=== PATIENT | female | born 1945 | race Caucasian/White ===

== ENCOUNTER 2018-01-27 14:52 | Inpatient (IN) | payer MEDICARE, BC ==
[~2018-01-27] VITALS: Ht 167.6 cm; Wt 90.7 kg
--- NOTE | 2018-01-27 15:20 | NUR ---
Initial contact with pt - no acute distress - nauseated s/p vomited greenish fluid denies chest pain, sob , abdominal pain, skin warm and dry - placed on humidifier attendant - family members at bedside
[2018-01-27] MEDS ORDERED: IV NS 0.9% 1,000 ML BAG IV ONE (15:30)
[2018-01-27] MEDS ORDERED: ONDANSETRON HCL/PF 4 MG/2 ML VIAL ONE ×2 (15:35→17:26)
--- NOTE | 2018-01-27 15:35 | NUR ---
blood culture drawn by histotechnician - pt c/o nausea Dr Hernandez made aware - med given as ordered.
[2018-01-27 15:43] LABS: BASOPHILS % (AUTO) 0.4 % (0.0-2.0); EOSINOPHILS % (AUTO) 0.1 % (0.0-6.0); HEMATOCRIT 41 % (33-45); HEMOGLOBIN 13.6 g/dL (11.5-14.8); LYMPHOCYTES # (AUTO) 1.2 /CMM (0.8-4.8); LYMPHOCYTES % (AUTO) 10.1 % (20.0-44.0); MEAN CORPUSCULAR HGB CONC 33 g/dl (31.0-36.0); MEAN CORPUSCULAR VOLUME 87 fL (82-100); MONOCYTES # (AUTO) 0.6 /CMM (0.1-1.30); NEUTROPHILS # (AUTO) 9.6 /CMM (1.8-8.9); NEUTROPHILS % (AUTO) 84.4 % (43.0-81.0); PLATELET COUNT (AUTO) 206 /CMM (150-450); RED BLOOD CELL COUNT(AUTO) 4.76 MIL/uL (4.0-5.2); WHITE BLOOD COUNT (AUTO) 11.4 K/uL (4.3-11.0)
[2018-01-27] MEDS ORDERED: ONDANSETRON HCL/PF - ER 4 MG/2 ML VIAL IV ONE ×2 (16:00→18:00)
[2018-01-27 16:20] LABS: CALCIUM, SERUM 9.4 mg/dL (8.5-10.1); CARBON DIOXIDE 29 mmol/L (21-32); CHLORIDE 104 mmol/L (98-107); GLUCOSE 214 mg/dL (74-106); POTASSIUM 3.7 mmol/L (3.5-5.1); SODIUM SERUM 142 mmol/L (136-145); UREA NITROGEN, BLOOD 39 mg/dL (7-18)
[2018-01-27 16:25] LABS: ALANINE AMINOTRANSFERASE 21 U/L (12-78); ALBUMIN 2.8 g/dL (3.4-5.0); ALKALINE PHOSPHATASE 117 U/L (46-116); ASPARTATE AMINOTRANSFERASE 18 U/L (15-37); BILIRUBIN,DIRECT 0.1 mg/dL (0.0-0.2); BILIRUBIN,TOTAL 0.4 mg/dL (0.2-1.0); TOTAL PROTEIN, SERUM 7.8 g/dL (6.4-8.2)
--- NOTE | 2018-01-27 17:24 | NUR ---
returned from [place] vomiting bile fluid Dr Hernandez made aware
[2018-01-27] MEDS ORDERED: MORPHINE SULFATE INJ 4 MG/ML DISP.SYRIN ONE (17:26)
[2018-01-27] MEDS ORDERED: AMLO2.5T3 PO (17:27)
[2018-01-27] MEDS ORDERED: DONE10TA44 PO (17:27)
[2018-01-27] MEDS ORDERED: MORPHINE SULFATE INJ 2 MG/ML DISP.SYRIN IV ONE (17:30)
--- NOTE | 2018-01-27 17:33 | NUR ---
med given for pain and vomiting as ordered
[2018-01-27] MEDS ORDERED: INSU100V10 SQ (17:56)
[2018-01-27] MEDS ORDERED: PRAM0.253 PO ×2 (17:56)
[2018-01-27] MEDS ORDERED: LATA2.5D7 EACHEYE (17:56)
[2018-01-27] MEDS ORDERED: LOSA50TA39 PO (17:56)
[2018-01-27] MEDS ORDERED: PANT40TA2 PO (17:56)
[2018-01-27] MEDS ORDERED: SITA50TA PO (17:56)
[2018-01-27] MEDS ORDERED: GABA-534 PO (17:56)
[2018-01-27] MEDS ORDERED: ESCI10TA PO (17:56)
[2018-01-27] MEDS ORDERED: FERR325T23 PO (17:56)
[2018-01-27] MEDS ORDERED: HYDR25TA4 PO (17:56)
[2018-01-27] MEDS ORDERED: ATOR10TA PO (17:56)
[2018-01-27] MEDS ORDERED: SOLI10TA2 PO (17:56)
[2018-01-27] MEDS ORDERED: FAMO-131 PO (17:56)
[2018-01-27] MEDS ORDERED: ASPI-1169 PO (17:56)
[2018-01-27] MEDS ORDERED: ERGO500014 PO (17:56)
[2018-01-27] MEDS ORDERED: BRIM5DRO3 EACHEYE (17:56)
--- NOTE | 2018-01-27 17:56 | NUR ---
pt sleeping at present - family members at bedside
[2018-01-27] MEDS ORDERED: IV NS 0.9% 1,000 ML IV ONE (18:30)
--- NOTE | 2018-01-27 18:39 | NUR ---
RIANA Dale seeing pt at present
[2018-01-27] MEDS ORDERED: MORPHINE SULFATE INJ 4 MG/ML DISP.SYRIN IV PRN (19:00)
[2018-01-27] MEDS ORDERED: MORPHINE SULFATE INJ 2 MG/ML DISP.SYRIN IV PRN (19:00)
[2018-01-27] MEDS ORDERED: MAG HYDROX/AL HYDROX/SIMETH 30 ML UDC PO PRN (19:00)
[2018-01-27] MEDS ORDERED: ONDANSETRON HCL/PF 4 MG/2 ML VIAL IVP PRN (19:00)
[2018-01-27] MEDS ORDERED: MAGNESIUM HYDROXIDE 30 ML UDC PO PRN (19:00)
[2018-01-27] MEDS ORDERED: ACETAMINOPHEN 325 MG TABLET PO PRN (19:00)
[2018-01-27] MEDS ORDERED: TEMAZEPAM 15 MG CAPSULE PO PRN (19:00)
--- NOTE | 2018-01-27 19:12 | NUR ---
report to Petros RN
--- NOTE | 2018-01-27 19:18 | NUR ---
RECEIVED REPORT FROM JUANITO ACE FOR JANA
--- NOTE | 2018-01-27 19:20 | NUR ---
CALLED DR BANDA [employer] PRODUCT SPECIALIST FOR CONSULT ON PT
[2018-01-27] MEDS ORDERED: AMIODARONE 150 MG/3 ML VIAL IV ONE ×2 (19:21→19:30)
--- NOTE | 2018-01-27 20:00 | NUR ---
karma rn notes admitted a 72 y/o female a/ox 4 admitted with dx of abdominal pain /n/v and acute renal failure, on tele monitor sr with bbb , v/s stable afebrile admission routine care done admission verification of order done with dr andrade head to toe assessment done , all needs attended too call light within reach kept pts clean dry and comfortable .
--- NOTE | 2018-01-27 20:10 | NUR ---
REPORT GIVEN TO JOSE JUAN HOWARD FOR JANA
[2018-01-27 20:49] VITALS: BP 189/84
[2018-01-27] MEDS: LATANOPROST EYE DROP 0.005% 2.5 ML BOTTLE EACHEYE SCH (22:00)
[2018-01-27] MEDS: ATORVASTATIN 10 MG TABLET PO SCH (22:08)
[2018-01-27] MEDS: PRAMIPEXOLE DI-HCL 0.25 MG TABLET PO SCH (22:09)
--- NOTE | 2018-01-27 23:07 | NUR ---
karma rn notes blood pressure 196/[address] Solomon WITH ORDER MADE AND CARRIED OUT, HYDRALAZINE 25MG Q 6HRS VIA PO FOR SBP >160 ORDER NOTED AND CARRIED OUT,
[2018-01-27] MEDS: hydrALAZINE HCL 25 MG TABLET PO SCH (23:19)
[2018-01-28] VITALS: BP_SYST 156; BP_SYST 176; BP_DIAS 76; BP_DIAS 80
[2018-01-28] MEDS ORDERED: hydrALAZINE HCL 25 MG TABLET PO ONE (02:00)
[2018-01-28] MEDS: IV NS 0.9% 1,000 ML IV PRN (02:49)
[2018-01-28 05:49] VITALS: BP 172/83
[2018-01-28] MEDS: hydrALAZINE HCL 25 MG TABLET PO SCH ×4 (06:32→23:22)
[2018-01-28 06:54] LABS: BASOPHILS % (AUTO) 0.2 % (0.0-2.0); HEMATOCRIT 38 % (33-45); HEMOGLOBIN 12.5 g/dL (11.5-14.8); LYMPHOCYTES # (AUTO) 0.9 /CMM (0.8-4.8); MEAN CORPUSCULAR HGB CONC 33 g/dl (31.0-36.0); MEAN CORPUSCULAR VOLUME 87 fL (82-100); MONOCYTES # (AUTO) 0.5 /CMM (0.1-1.30); MONOCYTES % (AUTO) 5.2 % (2.0-12.0); NEUTROPHILS # (AUTO) 7.6 /CMM (1.8-8.9); NEUTROPHILS % (AUTO) 84.6 % (43.0-81.0); PLATELET COUNT (AUTO) 181 /CMM (150-450); RED BLOOD CELL COUNT(AUTO) 4.34 MIL/uL (4.0-5.2); WHITE BLOOD COUNT (AUTO) 8.9 K/uL (4.3-11.0)
[2018-01-28 07:04] LABS: CALCIUM, SERUM 8.5 mg/dL (8.5-10.1); CARBON DIOXIDE 25 mmol/L (21-32); CHLORIDE 107 mmol/L (98-107); GLUCOSE 270 mg/dL (74-106); MAGNESIUM 1.7 mg/dL (1.8-2.4); PHOSPHORUS 4.4 mg/dL (2.5-4.9); POTASSIUM 3.4 mmol/L (3.5-5.1); SODIUM SERUM 145 mmol/L (136-145); UREA NITROGEN, BLOOD 36 mg/dL (7-18)
[2018-01-28 07:12] LABS: CHOLESTEROL 164 mg/dL (<200); HDL CHOLESTEROL 74 mg/dL (40-60); LDL 84 mg/dL (0-99); THYROID STIMULATING HORMONE 1.328 uIU/mL (0.358-3.74); TRIGLYCERIDES 70 mg/dL (30-150)
[2018-01-28 07:16] LABS: APPEARANCE,URINE CLOUDY (CLEAR); BILIRUBIN,URINE NEGATIVE (NEGATIVE); BLOOD, URINE 2+ Ery/uL (NEGATIVE); COLOR,URINE YELLOW (YELLOW); KETONES,URINE NEGATIVE (NEGATIVE); LEUKOCYTE ESTERASE ,URINE NEGATIVE (NEGATIVE); NITRITE, URINE NEGATIVE (NEGATIVE); PH,URINE 6.5 (5.0-8.0); PROTEIN,URINE 3+ mg/dl (NEGATIVE); UGLUCOSE 1+ mg/dL (NEGATIVE); UROBILINOGEN,URINE 0.2 EU/dL (0.2)
--- NOTE | 2018-01-28 07:30 | NUR ---
JOSE JUAN RN AM NOTES RECEIVED PT IN BED, AAO X 3, ON RA, NOT IN ANY DISTRESS, RESPIRATION UNLABORED, SR WITH BBB HR 87 ON MONITOR, DENIES ANY PAIN OR DISCOMFORT AT THIS TIME. LEFT AC G 20 WITH NS AT 75 ML/HR RUNNING, SITE CLEAR. SEE NURSING FLOWSHEET FOR SKIN ISSUES. ON CLEAR LIQUID DIET, BEDREST FOR NOW. CALL LIGHT WITHIN REACH, SAFETY MEASURES IN PLACE. WILL CONTINUE TO MONITOR.
[2018-01-28 07:57] LABS: BACTERIA,URINE Many /HPF (None Seen); SQUAMOUS EPITHELIAL CELL,UR Few /HPF (None Seen)
[2018-01-28 08:00] VITALS: BP 183/80
[2018-01-28] MEDS: PANTOPRAZOLE 40 MG TABLET.DR PO SCH (08:25)
[2018-01-28] MEDS: ASPIRIN 81 MG TAB.CHEW PO SCH (09:00)
[2018-01-28] MEDS ORDERED: SOLIFENACIN SUCCINATE 5 MG TABLET PO SCH (09:00)
[2018-01-28] MEDS ORDERED: FAMOTIDINE (20 MG) 20 MG TABLET PO SCH (09:00)
[2018-01-28] MEDS ORDERED: INSULIN DETEMIR 100 UNIT/ML CARTRIDGE SQ SCH (09:00)
[2018-01-28] MEDS: BRIMONIDINE TARTRATE OPHT SOLN 5 ML BOTTLE EACHEYE SCH ×2 (09:00→17:50)
[2018-01-28] MEDS ORDERED: AMLODIPINE BESYLATE 2.5 MG TABLET PO SCH (09:00)
[2018-01-28] MEDS ORDERED: FERROUS SULFATE (325 MG) 325 MG/TAB TABLET PO SCH (09:00)
[2018-01-28] MEDS: PRAMIPEXOLE DI-HCL 0.25 MG TABLET PO SCH ×2 (09:01→23:17)
[2018-01-28] MEDS: ESCITALOPRAM OXALATE (10 MG) 10 MG TABLET PO SCH (09:01)
[2018-01-28] MEDS: OXYBUTYNIN CHLORIDE 5 MG TABLET PO SCH ×2 (09:01→17:50)
[2018-01-28] MEDS: DONEPEZIL 5 MG TABLET PO SCH (09:01)
[2018-01-28] MEDS: LOSARTAN POTASSIUM 50 MG TABLET PO SCH (09:02)
[2018-01-28] MEDS ORDERED: Magnesium 1GM/D5W 100ML PREMIX 100 ML IV SCH (09:07)
[2018-01-28] MEDS: INSULIN GLARGINE, 100 UNIT/ML CARTRIDGE SQ SCH (09:20)
[2018-01-28] MEDS ORDERED: POTASSIUM CHLORIDE 10 MEQ TABLET.SA PO ONE (09:30)
--- NOTE | 2018-01-28 09:30 | NUR ---
JOSE JUAN RN NOTES DUE MEDS GIVEN
[2018-01-28 12:00] VITALS: BP_SYST 149; BP_SYST 159; BP_DIAS 67; BP_DIAS 70; BP_DIAS 79
--- NOTE | 2018-01-28 12:00 | NUR ---
WINE MANAGER NOTES ORTHOSTATIC BP LYING 159/70 SITTING 149/67 STANDING PATIENT UNABLE
[2018-01-28] MEDS ORDERED: DEXTROSE 50%-WATER 50 ML DISP.SYRIN IV PRN (12:30)
[2018-01-28 16:00] VITALS: BP 183/83
[2018-01-28] MEDS: AMLODIPINE BESYLATE 2.5 MG TABLET PO SCH (17:50)
[2018-01-28] MEDS: BLOOD SUGAR DIAGNOSTIC 1 EACH STRIP IN SCH ×2 (17:51→23:26)
[2018-01-28] MEDS: INSULIN REGULAR, HUMAN 100 UNIT/ML 3 ML VIAL SQ PRN ×2 (17:58→23:32)
--- NOTE | 2018-01-28 19:20 | NUR ---
JOSE JUAN RN CLOSING NOTES PT RESTING IN BED, AAO X 3, ON RA, NOT IN ANY DISTRESS, RESPIRATION UNLABORED, SR WITH BBB HR 80s ON MONITOR, DENIES ANY PAIN OR DISCOMFORT AT THIS TIME. LEFT AC G 20 WITH NS AT 75 ML/HR RUNNING, SITE CLEAR., BEDREST FOR NOW, PM CARE DONE. CALL LIGHT WITHIN REACH, SAFETY MEASURES IN PLACE. ALL NEEDS MET AT THIS TIME. NO OTHER SIGNIFICANT CHANGES. ENDORSED TO NEXT SHIFT FOR JANA.
[2018-01-28 20:00] VITALS: BP 136/61
[2018-01-28] MEDS: LATANOPROST EYE DROP 0.005% 2.5 ML BOTTLE EACHEYE SCH (22:00)
[2018-01-28] MEDS: ATORVASTATIN 10 MG TABLET PO SCH (23:25)
[2018-01-29] VITALS (7 sets, daily range): BP systolic 122–174; BP diastolic 63–82
[2018-01-29] MEDS: IV NS 0.9% 1,000 ML IV PRN (03:36)
[2018-01-29] MEDS: hydrALAZINE HCL 25 MG TABLET PO SCH ×4 (06:24→23:49)
[2018-01-29 06:25] LABS: BASOPHILS % (AUTO) 0.2 % (0.0-2.0); EOSINOPHILS % (AUTO) 0.1 % (0.0-6.0); HEMATOCRIT 39 % (33-45); HEMOGLOBIN 12.7 g/dL (11.5-14.8); LYMPHOCYTES % (AUTO) 10.3 % (20.0-44.0); MEAN CORPUSCULAR HGB CONC 33 g/dl (31.0-36.0); MEAN CORPUSCULAR VOLUME 87 fL (82-100); MONOCYTES # (AUTO) 0.5 /CMM (0.1-1.30); MONOCYTES % (AUTO) 5.1 % (2.0-12.0); NEUTROPHILS # (AUTO) 8.6 /CMM (1.8-8.9); NEUTROPHILS % (AUTO) 84.3 % (43.0-81.0); PLATELET COUNT (AUTO) 182 /CMM (150-450); RED BLOOD CELL COUNT(AUTO) 4.46 MIL/uL (4.0-5.2); WHITE BLOOD COUNT (AUTO) 10.2 K/uL (4.3-11.0)
[2018-01-29 06:37] LABS: ALANINE AMINOTRANSFERASE 13 U/L (12-78); ALBUMIN 2.2 g/dL (3.4-5.0); ALKALINE PHOSPHATASE 85 U/L (46-116); ASPARTATE AMINOTRANSFERASE 17 U/L (15-37); BILIRUBIN,TOTAL 0.2 mg/dL (0.2-1.0); CALCIUM, SERUM 8.7 mg/dL (8.5-10.1); CARBON DIOXIDE 25 mmol/L (21-32); CHLORIDE 109 mmol/L (98-107); CREATININE 1.8 mg/dL (0.6-1.3); GLUCOSE 150 mg/dL (74-106); PHOSPHORUS 2.7 mg/dL (2.5-4.9); POTASSIUM 3.2 mmol/L (3.5-5.1); SODIUM SERUM 145 mmol/L (136-145); TOTAL PROTEIN, SERUM 6.6 g/dL (6.4-8.2); UREA NITROGEN, BLOOD 34 mg/dL (7-18)
[2018-01-29] MEDS: BLOOD SUGAR DIAGNOSTIC 1 EACH STRIP IN SCH ×4 (08:19→21:52)
[2018-01-29] MEDS: BRIMONIDINE TARTRATE OPHT SOLN 5 ML BOTTLE EACHEYE SCH ×2 (08:19→17:35)
[2018-01-29] MEDS: PANTOPRAZOLE 40 MG TABLET.DR PO SCH (08:19)
[2018-01-29] MEDS: ASPIRIN 81 MG TAB.CHEW PO SCH (08:20)
[2018-01-29] MEDS: PRAMIPEXOLE DI-HCL 0.25 MG TABLET PO SCH ×2 (08:21→21:52)
[2018-01-29] MEDS: ESCITALOPRAM OXALATE (10 MG) 10 MG TABLET PO SCH (08:21)
[2018-01-29] MEDS: LOSARTAN POTASSIUM 50 MG TABLET PO SCH (08:22)
[2018-01-29] MEDS: OXYBUTYNIN CHLORIDE 5 MG TABLET PO SCH ×2 (08:22→17:34)
[2018-01-29] MEDS: DONEPEZIL 5 MG TABLET PO SCH (08:22)
[2018-01-29] MEDS: AMLODIPINE BESYLATE 2.5 MG TABLET PO SCH ×2 (08:23→17:35)
[2018-01-29] MEDS: INSULIN GLARGINE, 100 UNIT/ML CARTRIDGE SQ SCH (08:25)
[2018-01-29] MEDS: INSULIN REGULAR, HUMAN 100 UNIT/ML 3 ML VIAL SQ PRN ×4 (08:26→22:01)
[2018-01-29] MEDS: POTASSIUM CHLORIDE 20 MEQ TAB.PRT.SR PO SCH ×2 (10:50→11:34)
--- NOTE | 2018-01-29 11:10 | NUR ---
CALLED AND SPOKE WITH LENNIE FROM THE [employer] RE: GABRIELLA Addendum: 01/29/18 at 1111 by CECILY CASTLE RN CALLED AND SPOKE WITH LENNIE FROM [employer] RE: THE REQUEST OF DR. ROQUE FOR A PACEMAKER INTERROGATION. PER LENNIE, SHE WILL SEND THE MESSAGE TO THE IRRIGATION TECHNICIAN AND WILL EXPECT A CALL BACK. PRIMARY NURSE MELI MADE AWARE.
--- NOTE | 2018-01-29 11:22 | NUR ---
RECEIVED A CALL BACK FROM BRENDA PIECE MEAT TRIMMER OF [employer] AND HE SAID THAT HE WILL COME BY ANYTIME TODAY TO DO THE INTERROGATION OF THE PACEMAKER. PRIMARY NURSE MELI BEASLEY.
[2018-01-29 12:19] LABS: APPEARANCE,URINE CLOUDY (CLEAR); BILIRUBIN,URINE NEGATIVE (NEGATIVE); BLOOD, URINE 2+ Ery/uL (NEGATIVE); COLOR,URINE YELLOW (YELLOW); KETONES,URINE NEGATIVE (NEGATIVE); LEUKOCYTE ESTERASE ,URINE 2+ (NEGATIVE); NITRITE, URINE NEGATIVE (NEGATIVE); PROTEIN,URINE 3+ mg/dl (NEGATIVE); UGLUCOSE TRACE mg/dL (NEGATIVE); UROBILINOGEN,URINE 0.2 EU/dL (0.2)
[2018-01-29 12:24] LABS: BACTERIA,URINE 3+ /HPF (None Seen); WBC,URINE TOO NUMEROUS TO COUN /HPF (0-3)
[2018-01-29 12:28] LABS: CREATININE, URINE 74.2 MG/DL (30.0-125.0)
[2018-01-29 12:37] LABS: URINE TOTAL PROTEIN 1244.9 mg/dL (0-11.9)
[2018-01-29 13:26] LABS: EOSINOPHIL,URINE None Seen
[2018-01-29] MEDS ORDERED: LOSARTAN POTASSIUM 50 MG TABLET PO SCH (14:30)
--- NOTE | 2018-01-29 20:45 | NUR ---
RN OPENING NOTES PT AWAKE AND RESTING IN BED. NO COMPLAINTS OF PAIN, SOB OR DISTRESS AT THIS TIME. PT HAS A LEFT AC #20 IV, INTACT AND PATENT. SAFETY PRECAUTIONS IN PLACE, BED IN LOWEST LOCKED POSITION, X2 SIDE RAILS UP AND CALL LIGHT WITHIN REACH. WILL CONTINUE TO MONITOR.
[2018-01-29] MEDS: ATORVASTATIN 10 MG TABLET PO SCH (21:52)
[2018-01-29] MEDS: LATANOPROST EYE DROP 0.005% 2.5 ML BOTTLE EACHEYE SCH (21:52)
[2018-01-30 04:30] VITALS: BP 126/52
[2018-01-30] MEDS: hydrALAZINE HCL 25 MG TABLET PO SCH ×3 (05:08→16:11)
--- NOTE | 2018-01-30 06:39 | NUR ---
RN CLOSING NOTES PT AWAKE AND RESTING IN BED. NO COMPLAINTS OF PAIN, SOB OR DISTRESS OVERNIGHT. PT HAS A LEFT AC #20 IV, INTACT AND PATENT. SAFETY PRECAUTIONS IN PLACE, BED IN LOWEST LOCKED POSITION, X2 SIDE RAILS UP AND CALL LIGHT WITHIN REACH. WILL ENDORSE TO DAY SHIFT NURSE FOR CONTINUITY OF CARE.
[2018-01-30] MEDS: BLOOD SUGAR DIAGNOSTIC 1 EACH STRIP IN SCH ×3 (06:42→17:18)
--- NOTE | 2018-01-30 08:00 | NUR ---
MS RN RECEIVED ON BED, NON VERBAL, HOSPICE PATIENT, ON O2MASK, MORPINE DRIP 4ML/HR,NOT IN DISTRESS,WILL MONITOR PATIENT'S CONDITION.
[2018-01-30] MEDS ORDERED: HYDROGEL DRESSING 90 GM TUBE TP SCH (09:00)
[2018-01-30 09:12] VITALS: BP 168/80
--- NOTE | 2018-01-30 10:00 | NUR ---
MS SOLOMON WAS SEEN BY JANE W/ ORDERS MADE AND CARRIED OUT.
[2018-01-30] MEDS: PANTOPRAZOLE 40 MG TABLET.DR PO SCH (10:38)
[2018-01-30] MEDS: OXYBUTYNIN CHLORIDE 5 MG TABLET PO SCH ×2 (10:39→16:09)
[2018-01-30] MEDS: ASPIRIN 81 MG TAB.CHEW PO SCH (10:39)
[2018-01-30] MEDS: ESCITALOPRAM OXALATE (10 MG) 10 MG TABLET PO SCH (10:39)
[2018-01-30] MEDS: PRAMIPEXOLE DI-HCL 0.25 MG TABLET PO SCH (10:39)
[2018-01-30] MEDS: DONEPEZIL 5 MG TABLET PO SCH (10:39)
[2018-01-30] MEDS: AMLODIPINE BESYLATE 2.5 MG TABLET PO SCH ×2 (10:40→16:10)
[2018-01-30] MEDS: BRIMONIDINE TARTRATE OPHT SOLN 5 ML BOTTLE EACHEYE SCH ×2 (10:49→17:18)
[2018-01-30] MEDS: INSULIN GLARGINE, 100 UNIT/ML CARTRIDGE SQ SCH (10:54)
[2018-01-30] MEDS: INSULIN REGULAR, HUMAN 100 UNIT/ML 3 ML VIAL SQ PRN ×2 (12:44→18:25)
[2018-01-30 16:00] VITALS: BP 176/83
--- NOTE | 2018-01-30 16:00 | NUR ---
ms rn dressing to both feet done.
[2018-01-30 16:11] VITALS: BP 176/83
--- NOTE | 2018-01-30 18:47 | NUR ---
ms rn went home via [facility],all needs attended.
[2018-02-01] MEDS ORDERED: ERGOCALCIFEROL (VITAMIN D 2) 50,000 UNIT CAPSULE PO SCH (20:00)
== END 2018-01-30 19:54 | disposition home or self-care (01) | DRG 623 ==
LOC: ER 14:55 → TELE-TD 18:50 → UNDOADMIN 19:39 → TELE-TD 19:39 → TELE1 01-28 20:57 → MEDSG1 01-29 10:30
PROVIDERS: ADMIT Nurse Practitioner Acute Care; ATTEND Nurse Practitioner Acute Care
PROC: 0JBQ0ZZ Excision of Right Foot Subcutaneous Tissue and Fascia, Open Approach (ICD-10-PCS; principal; 2018-01-29)
DX: E86.0 Dehydration (principal); E44.0 Moderate protein-calorie malnutrition; I12.9 Hypertensive chronic kidney disease with stage 1 through stage 4 chronic kidney disease, or unspecified chronic kidney disease; E11.621 Type 2 diabetes mellitus with foot ulcer; E83.42 Hypomagnesemia; E87.6 Hypokalemia; K21.9 Gastro-esophageal reflux disease without esophagitis; R10.9 Unspecified abdominal pain; E11.22 Type 2 diabetes mellitus with diabetic chronic kidney disease; Z95.0 Presence of cardiac pacemaker; H40.9 Unspecified glaucoma; E11.610 Type 2 diabetes mellitus with diabetic neuropathic arthropathy; E66.9 Obesity, unspecified; Z68.28 Body mass index [BMI] 28.0-28.9, adult; N32.81 Overactive bladder; Z90.49 Acquired absence of other specified parts of digestive tract; G20 Parkinson's disease; F32.9 Major depressive disorder, single episode, unspecified; E78.5 Hyperlipidemia, unspecified; E11.42 Type 2 diabetes mellitus with diabetic polyneuropathy; F03.90 Unspecified dementia, unspecified severity, without behavioral disturbance, psychotic disturbance, mood disturbance, and anxiety; L97.519 Non-pressure chronic ulcer of other part of right foot with unspecified severity; Q66.0 Congenital talipes equinovarus; Z79.4 Long term (current) use of insulin; M77.9 Enthesopathy, unspecified; N18.3 Chronic kidney disease, stage 3 (moderate)
CPT/HCPCS: 36415; 71045-TC; 80048-TC; 80053-TC; 80061-TC; 80076-TC; 81000-TC; 82570-TC; 82962-TC; 83605-TC; 83735-TC; 84100-TC; 84155-TC; 84300-TC; 84443-TC; 84484-TC; 85025-TC; 87040-TC; 87081-TC; 87086-TC; 93307-TC; 97530-TC; A4606; A6248; A6402; G0378; J0282; J1815; J2270; J2405; J3475; J7030; Z7610